=== PATIENT | male | born 2000 | race African-American/Black ===

== ENCOUNTER 2020-05-23 20:41 | Emergency (ER) | payer OTHER ==
[~2020-05-23] VITALS: Ht 172.7 cm; Wt 81.8 kg
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
[2020-05-23] MEDS ORDERED: NAPR-683 PO (21:47)
[2020-05-23] MEDS ORDERED: CYCL5TAB PO (21:47)
[2020-05-23 21:52] VITALS: BP 165/71
== END 2020-05-23 21:56 | disposition home or self-care (01) ==
LOC: ER 20:41
DX: S16.1XXA Strain of muscle, fascia and tendon at neck level, initial encounter (principal); S39.012A Strain of muscle, fascia and tendon of lower back, initial encounter; S20.219A Contusion of unspecified front wall of thorax, initial encounter; V49.49XA Driver injured in collision with other motor vehicles in traffic accident, initial encounter; Y92.488 Other paved roadways as the place of occurrence of the external cause; Y93.89 Activity, other specified; Y99.8 Other external cause status
CPT/HCPCS: 71046; 72040; 72072; 99284